=== PATIENT | female | born 1995 | race Caucasian/White ===

== ENCOUNTER → 2017-09-01 | Outpatient (CLI) | payer OTHER ==
--- NOTE | 2017-09-01 11:12 | US ---
EXAMINATION TYPE: US OB <= 14 wk fetus DATE OF EXAM: 09/01/2017 COMPARISON: NONE CLINICAL HISTORY: 22-year-old female Z36 Confirm dates. EXAM PERFORMED: Transabdominal (TA) FINDINGS: EXAM MEASUREMENTS: GESTATIONAL AGE / DATING Physician Established: Not yet established Dates by LMP: (11 weeks/1 days) EDC: 03/22/2018 Dates by First Scan: No previous this is first scan Dates by Current Scan for: (10 weeks/2 days), 6 days smaller EDC: 03/28/2018 MATERNAL ANATOMY Uterus: 10.0 x 6.7 x 7.9 cm Right Ovary: 3.2 x 2.4 x 1.8 cm Left Ovary: 3.5 x 2.2 x 1.8 cm Post CDS / Adnexa: wnl Presence of free fluid: No Presence of corpus luteal cyst: No Presence of subchorionic bleed: Yes, along the right posterior margin, measuring 1.0 x 0.8 x 0.6 cm GESTATION / SURVEY CRL: 3.3 cm (10 weeks/2 days) Yolk Sac (normal less than 6mm): 3.7 mm Heart Rate: 172 bpm, upper limits of normal Rhythm: Normal IUP: Viable IUP Date of LMP: 06/15/2017 Beta HcG (if available): Not available at time of exam Terminal Worker notes: Viable IUP with an VENKAT of 03/28/2018. Probable subchorionic bleed visualized measu ring 1.0 x 0.8 x 0.6 cm. IMPRESSION: 1. Single live intrauterine with estimated gestational age of 11 weeks 1 day by LMP. Curren t ultrasound biometry is 6 days smaller (10 weeks 2 days). 2. Small perigestational bleed. 3. Given the perigestational bleed, slightly smaller size, and heart rate at the upper limits o f normal, consider short interval follow-up. 4. Otherwise, complete survey recommended at 18-20 weeks.
== END | disposition home or self-care (01) ==
LOC: RADUSWWP 09:59
PROVIDERS: ATTEND Obstetrics & Gynecology
DX: Z36.89 Encounter for other specified antenatal screening (principal); O20.8 Other hemorrhage in early pregnancy; Z3A.10 10 weeks gestation of pregnancy
CPT/HCPCS: 76801

== ENCOUNTER 2017-10-14 14:14 | Emergency (ER) | payer OTHER ==
[2017-10-14 14:23] VITALS: RESP 18
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
[2017-10-14 16:00] VITALS: BP 123/56; PULSE 99; TEMP 98.3
== END 2017-10-14 16:00 | disposition home or self-care (01) ==
LOC: EC 14:14
DX: Z04.1 Encounter for examination and observation following transport accident (principal); O99.282 Endocrine, nutritional and metabolic diseases complicating pregnancy, second trimester; E07.9 Disorder of thyroid, unspecified; O99.332 Smoking (tobacco) complicating pregnancy, second trimester; F17.200 Nicotine dependence, unspecified, uncomplicated; Z3A.20 20 weeks gestation of pregnancy; Z79.899 Other long term (current) drug therapy; Z88.0 Allergy status to penicillin; Z88.1 Allergy status to other antibiotic agents; Z88.2 Allergy status to sulfonamides; V89.2XXA Person injured in unspecified motor-vehicle accident, traffic, initial encounter; Y92.410 Unspecified street and highway as the place of occurrence of the external cause
CPT/HCPCS: 76805; 99284

== ENCOUNTER 2018-02-28 17:06 | Inpatient (IN) | payer OTHER ==
[2018-02-28 18:31] LABS: Amorphous Sediment,Urine Rare /hpf; Appearance,Urine Cloudy (Clear); Bacteria,Urine Occasional /hpf; Bilirubin,Urine Negative (Negative); Blood,Urine Negative (Negative); Color,Urine Yellow; Glucose,Urine (UA) Negative (Negative); Hyaline Casts,Urine 3 /lpf (0-2); Ketones,Urine Negative (Negative); Leukocyte Esterase,Urine Large (Negative); Mucus,Urine Rare /hpf; Nitrite,Urine Negative (Negative); Protein,Urine 3+ (Negative); RBC,Urine 8 /hpf (0-5); Specific Gravity,Urine 1.015 (1.001-1.035); Squamous Epithelial Cell,Urine 19 /hpf (0-4); Urobilinogen,Urine <2.0 mg/dL (<2.0); WBC,Urine >182 /hpf (0-5)
[2018-02-28 18:40] LABS: Basophils % (A) 0 %; Eosinophils # (A) 0.2 k/uL (0-0.7); Eosinophils % (A) 1 %; HCT 39.2 % (34.0-46.0); HGB 13.5 gm/dL (11.4-16.0); Lymphocytes # (A) 2.9 k/uL (1.0-4.8); Lymphocytes % (A) 15 %; MCH 32.1 pg (25.0-35.0); MCHC 34.4 g/dL (31.0-37.0); MCV 93.1 fL (80.0-100.0); Mean Platelet Volume 7.2; Monocytes # (A) 0.6 k/uL (0-1.0); Monocytes % (A) 3 %; Neutrophils # (A) 14.6 k/uL (1.3-7.7); Neutrophils % (A) 78 %; Platelet Count 510 k/uL (150-450); RBC 4.21 m/uL (3.80-5.40); RDW 13.7 % (11.5-15.5); WBC 18.7 k/uL (3.8-10.6)
[2018-02-28 18:48] LABS: ALT 26 U/L (9-52); AST 18 U/L (14-36); Blood Urea Nitrogen 7 mg/dL (7-17); LDH 409 U/L (313-618); Uric Acid 4.9 mg/dL (3.7-7.4)
[2018-02-28] MEDS ORDERED: OXYTOCIN 10 UNIT/ML 1 ML VIAL IM PRN (20:37)
[2018-02-28] MEDS ORDERED: CARBOPROST TROMETHAMINE 250 MCG/ML 1 ML AMP IM PRN (20:37)
[2018-02-28] MEDS ORDERED: TERBUTALINE 1 MG/ML VIAL SQ PRN (20:37)
[2018-02-28] MEDS ORDERED: METHYLERGONOVINE 0.2 MG/ML 1 ML AMP IM PRN (20:37)
[2018-02-28] MEDS ORDERED: LIDOCAINE 1% (PF) 10 MG/ML (30 ML SDV) SQ PRN (20:37)
--- NOTE | 2018-02-28 20:43 | P.HPOB ---
History of Present Illness H&P Date: 02/28/18 Chief Complaint: Intrauterine at 37 weeks: Gestational hypertension Eusebia is a 22-year-old at 37 weeks gestation who arrives with elevated blood pressures and contractions. She relates contractions have been going on all day. Her blood pressures since being in labor and delivery have all been in the 140s 150/80-90 range. She's had no significant other elevations. However as she is past 37 weeks and she is had multiple blood pressure elevations gestational hypertension has been diagnosed and she is planned for delivery in the morning. She is alina irregularly he'll heart tones were in the 140s and a category 1 tracing is noted. It is noted that she's had no other complications or concerns during the and she is feeling well at this time. Pertinent labs did include A+ blood type Rh and it was negative, rubella nonimmune, hepatitis B surface antigen and RPR were both negative. Groupie strep was not obtained until Thursday and is therefore unknown. She does have multiple ALLERGIES to antibiotics, however due to unknown group B strep status Cleocin will need to be used for GBS prophylaxis. Her past medical history is seen him for thyroid disease she denies any other medical problems or complications. Currently she is dilated to 2 cm 80% effaced -2 station. In discussing symptomatology with the patient she denies any headache, no epigastric pain, no visual changes. Her deep tendon reflexes are +1 to +2 bilaterally in both upper and lower extremities. It is noted that her heart is regular, lungs are clear and her extremities are without pain and there is no significant peripheral edema. It is also noted that she has no epigastric pain to palpation and gravid uterus is noted. Assessment intrauterine at 37 weeks. Plan induction of labor in the morning unless something changes slight in which case we'll initiate labor tonight. We did discuss starting labor tonight she is very hungry she's not eaten throughout most of the day and would prefer to have some type of foods that she has strength to try and be put into labor in the morning. Past Medical History Past Medical History: Asthma, Thyroid Disorder History of Any Multi-Drug Resistant Organisms: None Reported Past Surgical History: Orthopedic Surgery Additional Past Surgical History / Comment(s): lt knee Smoking Status: Current every day smoker Medications and Allergies Home Medications Medication Instructions Recorded Confirmed Type Levothyroxine Sodium [Synthroid] 200 mcg PO DAILY 02/28/14 02/28/18 History Pnv No.95/Ferrous Fum/Folic AC 1 tab PO DAILY 02/28/18 02/28/18 History [ Multivitamin Tablet] Venlafaxine HCl [Effexor XR] 75 mg PO DAILY 02/28/18 02/28/18 History valACYclovir [Valtrex] 500 mg PO DAILY 02/28/18 02/28/18 History Allergies Allergy/AdvReac Type Severity Reaction Status Date / Time azithromycin [From Zithromax] Allergy Rash/Hives Verified 02/28/18 17:18 Penicillins Allergy Unknown Verified 02/28/18 17:18 Childhood Sulfa (Sulfonamide Allergy Rash/Hives Verified 02/28/18 17:18 Antibiotics) Exam Osteopathic Statement: *. No significant issues noted on an osteopathic structural exam other than those noted in the History and Physical/Consult. - Vital Signs Vital signs: Vital Signs Temp Pulse Resp BP 02/28/18 18:59 95 16 157/86 02/28/18 17:58 98.5 F 94 16 144/92 Intake and Output 02/28/18 02/28/18 02/28/18 06:59 14:59 22:59 Other: Weight 104.326 kg - OBG Physical Exam Breast: both: normal (no masses) Abdomen: bowel sounds normal, no diffuse tenderness, no bruit present, no guarding noted, no hepatomegaly, no splenomegaly, no mass Vulva: both: normal Vagina: normal moisture, no discharge Cervix: no lesion, no discharge Uterus: normal size, normal contour Adnexa: both: normal Anus/Rectum: normal perianal skin, no rectal mass, no hemorrhoids, heme negative Results Result Diagrams: 02/28/18 18:25 02/28/18 18:25 Abnormal Lab Results - Last 24 Hours (Table) 02/28/18 02/28/18 02/28/18 Range/Units 18:07 18:25 18:25 WBC 18.7 H (3.8-10.6) k/uL Plt Count 510 H (150-450) k/uL Neutrophils # 14.6 H (1.3-7.7) k/uL Creatinine 0.50 L (0.52-1.04) mg/dL Urine Appearance Cloudy H (Clear) Urine Protein 3+ H (Negative) Ur Leukocyte Esterase Large H (Negative) Urine RBC 8 H (0-5) /hpf Urine WBC >182 H (0-5) /hpf Ur Squamous Epith Cells 19 H (0-4) /hpf Amorphous Sediment Rare H (None) /hpf Urine Bacteria Occasional H (None) /hpf Hyaline Casts 3 H (0-2) /lpf Urine Mucus Rare H (None) /hpf
[2018-02-28 21:00] VITALS: BMI 37.1
[2018-03-01] MEDS: LACTATED RINGERS 1,000 ML IV SCH ×5 (06:08→21:14)
[2018-03-01] MEDS: OXYTOCIN 20 UNITS/1000 ML NS 1,000 ML IV SCH (06:09)
[2018-03-01] MEDS: CLINDAMYCIN 900 MG in DEXTROSE 5% IN WATER 50 ML IVPB SCH ×6 (06:16→21:16)
[2018-03-01 06:23] LABS: Basophils # (A) 0.1 k/uL (0-0.2); Basophils % (A) 0 %; Eosinophils # (A) 0.2 k/uL (0-0.7); Eosinophils % (A) 1 %; HCT 41.8 % (34.0-46.0); HGB 13.9 gm/dL (11.4-16.0); Lymphocytes # (A) 3.7 k/uL (1.0-4.8); Lymphocytes % (A) 20 %; MCH 31.2 pg (25.0-35.0); MCHC 33.3 g/dL (31.0-37.0); MCV 93.5 fL (80.0-100.0); Mean Platelet Volume 7.1; Monocytes # (A) 0.7 k/uL (0-1.0); Monocytes % (A) 4 %; Neutrophils # (A) 13.6 k/uL (1.3-7.7); Neutrophils % (A) 73 %; Platelet Count 554 k/uL (150-450); RBC 4.46 m/uL (3.80-5.40); RDW 13.6 % (11.5-15.5); WBC 18.8 k/uL (3.8-10.6)
[2018-03-01] MEDS: LEVOTHYROXINE 100 MCG TAB PO SCH (07:49)
[2018-03-01] MEDS: valACYclovir 500 MG TAB PO SCH (07:49)
[2018-03-01] MEDS: VENLAFAXINE HCL ER 75 MG CAP PO SCH (07:49)
[2018-03-01] MEDS: BUTORPHANOL 1 MG/ML 1 ML VIAL IV PRN ×4 (12:47→23:06)
[2018-03-01] MEDS ORDERED: BUPIVACAINE (PF) 0.25% 30 ML VIAL ONE (19:05)
[2018-03-01] MEDS ORDERED: SODIUM CHLORIDE 0.9% 100 ML BAG ONE (19:05)
[2018-03-01] MEDS ORDERED: fentaNYL (PF) 50 MCG/ML 5 ML AMP ONE (19:05)
[2018-03-02] MEDS: OXYTOCIN 20 UNITS/1000 ML NS 1,000 ML IV SCH (00:31)
[2018-03-02] MEDS ORDERED: diphenhydrAMINE 25 MG CAP PO PRN (00:36)
[2018-03-02] MEDS ORDERED: diphenhydrAMINE 50 MG/ML 1 ML VIAL IVP PRN ×2 (00:36)
[2018-03-02] MEDS ORDERED: WITCH HAZEL 1 EACH MED..PAD TOPICAL PRN (00:36)
[2018-03-02] MEDS ORDERED: ACETAMINOPHEN TAB 325 MG TAB PO PRN (00:36)
[2018-03-02] MEDS ORDERED: IBUPROFEN 600 MG TAB PO PRN (00:36)
[2018-03-02] MEDS ORDERED: BENZOCAINE/MENTHOL SPRAY 1 GM/SPRAY AEROSOL TOPICAL PRN (00:36)
[2018-03-02] MEDS ORDERED: HYDROCORTISONE 2.5% RECTAL CREAM 30 GM TUBE RECTAL PRN (00:36)
[2018-03-02] MEDS ORDERED: ZOLPIDEM 5 MG TAB PO PRN (00:36)
[2018-03-02] MEDS ORDERED: SIMETHICONE 80 MG CHEWABLE PO PRN (00:36)
[2018-03-02] MEDS ORDERED: diphenhydrAMINE 50 MG CAP PO PRN (00:36)
[2018-03-02] MEDS ORDERED: LANOLIN CREAM 5 GM TUBE TOPICAL PRN (00:36)
--- NOTE | 2018-03-02 00:41 | P.PROBDLV ---
Vaginal Delivery Note - . Vaginal Delivery Note: 22 year old presents at 37 weeks for induction of labor for gestational hypertension. Her cervix is 2 cm dilated, 80% effaced, -1 station. She is not alina. heart tones 130-135 with moderate variability and reactive. Pitocin was started, amniotomy performed at 7:21 AM and thin meconium fluid seen. She progressed slowly throughout the day. When she was 6 cm dilated she did get an epidural. The epidural did not work very well and she did get another dose of Stadol. She was completely dilated at 2331, pushed, and delivered a viable female over intact perineum under epidural anesthesia at 2348. Head delivered OA, nuchal cord 1 easily reduced, anterior shoulder which was the right shoulder delivered gentle downward guidance followed by posterior shoulder and rest of body. Nose and mouth bulb suctioned, cord clamped and cut, infant placed on mother's abdomen. Apgars 8, 9, weight 6 lbs. 2 oz. Placenta delivered manually with three-vessel cord at 2359. Vagina, cervix, and perineum were inspected. No lacerations noted. Estimated blood loss 250 mL.
[2018-03-02] MEDS ORDERED: OXYTOCIN 20 UNITS/1000 ML NS 1,000 ML IV SCH (00:45)
[2018-03-02] MEDS: SENNOSIDES-DOCUSATE SODIUM 1 EACH TAB PO SCH ×2 (10:13→23:14)
[2018-03-02] MEDS: LEVOTHYROXINE 100 MCG TAB PO SCH (10:13)
[2018-03-02] MEDS: valACYclovir 500 MG TAB PO SCH (10:13)
[2018-03-02] MEDS: VENLAFAXINE HCL ER 75 MG CAP PO SCH (10:14)
[2018-03-02 12:46] VITALS: RESP 18
[2018-03-03 00:53] VITALS: BP 141/86; PULSE 94; TEMP 98.4
[2018-03-03 07:48] LABS: Basophils # (A) 0.1 k/uL (0-0.2); Basophils % (A) 1 %; Eosinophils # (A) 0.3 k/uL (0-0.7); Eosinophils % (A) 1 %; HCT 34.1 % (34.0-46.0); HGB 11.5 gm/dL (11.4-16.0); Lymphocytes # (A) 4.7 k/uL (1.0-4.8); Lymphocytes % (A) 25 %; MCH 31.7 pg (25.0-35.0); MCHC 33.7 g/dL (31.0-37.0); Mean Platelet Volume 7.1; Monocytes # (A) 0.7 k/uL (0-1.0); Monocytes % (A) 4 %; Neutrophils # (A) 12.9 k/uL (1.3-7.7); Neutrophils % (A) 67 %; Platelet Count 500 k/uL (150-450); RBC 3.63 m/uL (3.80-5.40); RDW 13.3 % (11.5-15.5); WBC 19.2 k/uL (3.8-10.6)
[2018-03-03] MEDS ORDERED: valACYclovir 500 MG TAB ONE (09:00)
[2018-03-03] MEDS ORDERED: LEVOTHYROXINE 100 MCG TAB ONE (09:00)
[2018-03-03] MEDS ORDERED: VENLAFAXINE HCL ER 75 MG CAP PO ONE (09:00)
[2018-03-03] MEDS: valACYclovir 500 MG TAB PO SCH (15:28)
[2018-03-03] MEDS: VENLAFAXINE HCL ER 75 MG CAP PO SCH (15:28)
[2018-03-03] MEDS: SENNOSIDES-DOCUSATE SODIUM 1 EACH TAB PO SCH (15:28)
[2018-03-03] MEDS: LEVOTHYROXINE 100 MCG TAB PO SCH (15:28)
== END 2018-03-03 12:35 | disposition home or self-care (01) | DRG 775 ==
LOC: FBPOP 17:06 → 4FBP 19:20
PROVIDERS: ADMIT Obstetrics & Gynecology; ATTEND Obstetrics & Gynecology
PROC: 10907ZC Drainage of Amniotic Fluid, Therapeutic from Products of Conception, Via Natural or Artificial Opening (ICD-10-PCS; principal; 2018-02-28)
PROC: 10E0XZZ Delivery of Products of Conception, External Approach (ICD-10-PCS; 2018-02-28)
PROC: 3E033VJ Introduction of Other Hormone into Peripheral Vein, Percutaneous Approach (ICD-10-PCS; 2018-02-28)
PROC: 00HU33Z Insertion of Infusion Device into Spinal Canal, Percutaneous Approach (ICD-10-PCS; 2018-02-28)
PROC: 3E0R3NZ Introduction of Analgesics, Hypnotics, Sedatives into Spinal Canal, Percutaneous Approach (ICD-10-PCS; 2018-02-28)
DX: O13.4 Gestational [pregnancy-induced] hypertension without significant proteinuria, complicating childbirth (principal); O69.81X0 Labor and delivery complicated by cord around neck, without compression, not applicable or unspecified; O99.334 Smoking (tobacco) complicating childbirth; F17.200 Nicotine dependence, unspecified, uncomplicated; O99.284 Endocrine, nutritional and metabolic diseases complicating childbirth; E07.9 Disorder of thyroid, unspecified; Z37.0 Single live birth; Z3A.37 37 weeks gestation of pregnancy; Z79.890 Hormone replacement therapy; Z79.899 Other long term (current) drug therapy; Z88.0 Allergy status to penicillin; Z88.2 Allergy status to sulfonamides
CPT/HCPCS: 59025; 81001; 82565; 83615; 84450; 84460; 84520; 84550; 85025; 99215

== ENCOUNTER 2018-03-07 09:00 | Emergency (ER) | payer OTHER ==
[2018-03-07] MEDS ORDERED: SODIUM CHLORIDE 0.9% 1,000 ML IV ONE (09:47)
--- NOTE | 2018-03-07 09:48 | ED ---
Female Urogenital HPI - General Chief complaint: Vaginal Bleeding Stated complaint: Vaginal Bleeding Time Seen by Provider: 03/07/18 09:22 Source: patient, RN notes reviewed, old records reviewed Mode of arrival: ambulatory Limitations: no limitations - History of Present Illness Initial comments: Patient is 22-year-old female , with chief complaint of increased vaginal bleeding 6 days after giving to her baby girl. Patient reports that she had a normal vaginal delivery, with some, Patient with retained placenta the time. Apparently patient's placenta came out for pieces. She reports that the bleeding light and opt for the past few days but increased over her yesterday and today. She reports that she is not passing heavy clots. She denies any tearing during the vaginal delivery. She reports that she sometimes feels lightheaded and dizzy. She was here visiting her baby on the pediatric floor when she told the nursing staff they thought that she could should come down for further evaluation. JOINT SUPERVISOR was Dr. Suresh. - Related Data Home Medications Medication Instructions Recorded Confirmed Levothyroxine Sodium [Synthroid] 200 mcg PO DAILY 02/28/14 02/28/18 Pnv No.95/Ferrous Fum/Folic AC 1 tab PO DAILY 02/28/18 02/28/18 [ Multivitamin Tablet] Venlafaxine HCl [Effexor XR] 75 mg PO DAILY 02/28/18 02/28/18 valACYclovir [Valtrex] 500 mg PO DAILY 02/28/18 02/28/18 Allergies Allergy/AdvReac Type Severity Reaction Status Date / Time azithromycin [From Zithromax] Allergy Rash/Hives Verified 03/07/18 09:10 Penicillins Allergy Unknown Verified 03/07/18 09:10 Childhood Sulfa (Sulfonamide Allergy Rash/Hives Verified 03/07/18 09:10 Antibiotics) Review of Systems ROS Statement: Those systems with pertinent positive or pertinent negative responses have been documented in the HPI. ROS Other: All systems not noted in ROS Statement are negative. Past Medical History Past Medical History: Asthma, Thyroid Disorder History of Any Multi-Drug Resistant Organisms: None Reported Past Surgical History: Orthopedic Surgery Additional Past Surgical History / Comment(s): lt knee Past Psychological History: No Psychological Hx Reported Smoking Status: Former smoker Past Alcohol Use History: None Reported Past Drug Use History: None Reported - Past Family History Mother Family Medical History: Diabetes Mellitus, Hypertension General Exam - General Exam Comments Initial Comments: The 22-year-old female. Alert and oriented. No acute distress. Limitations: no limitations General appearance: alert, in no apparent distress Head exam: Present: atraumatic, normocephalic, normal inspection Eye exam: Present: normal appearance, PERRL, EOMI. Absent: scleral icterus, conjunctival injection, periorbital swelling ENT exam: Present: normal exam, mucous membranes moist Neck exam: Present: normal inspection. Absent: tenderness, meningismus, lymphadenopathy Respiratory exam: Present: normal lung sounds bilaterally. Absent: respiratory distress, wheezes, rales, rhonchi, stridor Cardiovascular Exam: Present: regular rate, normal rhythm, normal heart sounds. Absent: systolic murmur, diastolic murmur, rubs, gallop, clicks GI/Abdominal exam: Present: soft, normal bowel sounds. Absent: distended, tenderness, guarding, rebound, rigid Back exam: Present: normal inspection Neurological exam: Present: alert, oriented X3, CN II-XII intact Psychiatric exam: Present: normal affect, normal mood Skin exam: Present: warm, dry, intact, normal color. Absent: rash Course Vital Signs 03/07/18 03/07/18 09:09 12:53 Temperature 98.4 F 98.6 F Pulse Rate 80 90 Respiratory 20 99 H Rate Blood Pressure 126/84 138/85 O2 Sat by Pulse 98 98 Oximetry - Reevaluation(s) Reevaluation #1: 03/07/18 11:25 Patient was reevaluated sinus quite hysterical and crying. When I went to discuss doing a pelvic exam she is refusing. I discussed the importance of this in regards to this as a home and she is bleeding into check her cervix. She did go to an ultrasound prior to this. She must wait for ultrasound report until I can examine her. Medical Decision Making - Medical Decision Making Female presents with vaginal bleed 6 days postdelivery. She was concerned feeling lightheaded and dizzy. At this time he vital signs stable. Blood cell count is mildly elevated. This was similar to her last blood work discharged from OB floor. Patient has been quite irate while in the emergency department, Patient was yelling multiple curse words during evaluation. Patient's nurse from the pediatric floor came down and also was talking to the Patient. Patient refused pelvic exam by me. Ultrasound did show increased vascular recommended FLANGING MACHINE OPERATOR consult. We did consult Dr. Arguelles recommend seeing Dr. Suresh in the office tomorrow, she does have stable hemoglobin stable vital signs. Patient will be discharged at this time and return to the pediatric floor to see her child. - Lab Data Result diagrams: 03/07/18 09:46 03/07/18 09:46 Lab Results 03/07/18 03/07/18 03/07/18 Range/Units 09:46 09:46 09:46 WBC 18.6 H (3.8-10.6) k/uL RBC 4.19 (3.80-5.40) m/uL Hgb 12.8 (11.4-16.0) gm/dL Hct 38.6 (34.0-46.0) % MCV 92.2 (80.0-100.0) fL MCH 30.4 (25.0-35.0) pg MCHC 33.0 (31.0-37.0) g/dL RDW 12.9 (11.5-15.5) % Plt Count 664 H (150-450) k/uL Neutrophils % 75 % Lymphocytes % 17 % Monocytes % 4 % Eosinophils % 3 % Basophils % 0 % Neutrophils # 14.0 H (1.3-7.7) k/uL Lymphocytes # 3.1 (1.0-4.8) k/uL Monocytes # 0.8 (0-1.0) k/uL Eosinophils # 0.5 (0-0.7) k/uL Basophils # 0.0 (0-0.2) k/uL PT 9.6 (9.0-12.0) sec INR 1.0 (<1.2) APTT 23.7 (22.0-30.0) sec Sodium 141 (137-145) mmol/L Potassium 4.6 (3.5-5.1) mmol/L Chloride 103 (98-107) mmol/L Carbon Dioxide 22 (22-30) mmol/L Anion Gap 16 mmol/L BUN 11 (7-17) mg/dL Creatinine 0.82 (0.52-1.04) mg/dL Est GFR (CKD-EPI)AfAm >90 (>60 ml/min/1.73 sqM) Est GFR (CKD-EPI)NonAf >90 (>60 ml/min/1.73 sqM) Glucose 87 (74-99) mg/dL Calcium 10.3 H (8.4-10.2) mg/dL Total Bilirubin 0.2 (0.2-1.3) mg/dL AST 24 (14-36) U/L ALT 27 (9-52) U/L Alkaline Phosphatase 79 (38-126) U/L Total Protein 6.9 (6.3-8.2) g/dL Albumin 3.8 (3.5-5.0) g/dL Urine Color Urine Appearance (Clear) Urine pH (5.0-8.0) Ur Specific [place] (1.001-1.035) Urine Protein (Negative) Urine Glucose (UA) (Negative) Urine Ketones (Negative) Urine Blood (Negative) Urine Nitrite (Negative) Urine Bilirubin (Negative) Urine Urobilinogen (<2.0) mg/dL Ur Leukocyte Esterase (Negative) Urine RBC (0-5) /hpf Urine WBC (0-5) /hpf Ur Squamous Epith Cells (0-4) /hpf Urine Bacteria (None) /hpf Urine Mucus (None) /hpf Blood Type Blood Type Confirm Blood Type Recheck Antibody Screen Spec Expiration Date 03/07/18 03/07/18 03/07/18 Range/Units 09:46 09:46 10:46 WBC (3.8-10.6) k/uL RBC (3.80-5.40) m/uL Hgb (11.4-16.0) gm/dL Hct (34.0-46.0) % MCV (80.0-100.0) fL MCH (25.0-35.0) pg MCHC (31.0-37.0) g/dL RDW (11.5-15.5) % Plt Count (150-450) k/uL Neutrophils % % Lymphocytes % % Monocytes % % Eosinophils % % Basophils % % Neutrophils # (1.3-7.7) k/uL Lymphocytes # (1.0-4.8) k/uL Monocytes # (0-1.0) k/uL Eosinophils # (0-0.7) k/uL Basophils # (0-0.2) k/uL PT (9.0-12.0) sec INR (<1.2) APTT (22.0-30.0) sec Sodium (137-145) mmol/L Potassium (3.5-5.1) mmol/L Chloride (98-107) mmol/L Carbon Dioxide (22-30) mmol/L Anion Gap mmol/L BUN (7-17) mg/dL Creatinine (0.52-1.04) mg/dL Est GFR (CKD-EPI)AfAm (>60 ml/min/1.73 sqM) Est GFR (CKD-EPI)NonAf (>60 ml/min/1.73 sqM) Glucose (74-99) mg/dL Calcium (8.4-10.2) mg/dL Total Bilirubin (0.2-1.3) mg/dL AST (14-36) U/L ALT (9-52) U/L Alkaline Phosphatase (38-126) U/L Total Protein (6.3-8.2) g/dL Albumin (3.5-5.0) g/dL Urine Color Yellow Urine Appearance Clear (Clear) Urine pH 6.0 (5.0-8.0) Ur Specific [place] 1.007 (1.001-1.035) Urine Protein Trace H (Negative) Urine Glucose (UA) Negative (Negative) Urine Ketones Negative (Negative) Urine Blood Moderate H (Negative) Urine Nitrite Negative (Negative) Urine Bilirubin Negative (Negative) Urine Urobilinogen <2.0 (<2.0) mg/dL Ur Leukocyte Esterase Moderate H (Negative) Urine RBC 26 H (0-5) /hpf Urine WBC 18 H (0-5) /hpf Ur Squamous Epith Cells 1 (0-4) /hpf Urine Bacteria Occasional H (None) /hpf Urine Mucus Rare H (None) /hpf Blood Type A Positive Blood Type Confirm A Positive Blood Type Recheck CABO Indicated Antibody Screen NEGATIVE Spec Expiration Date 03/10/2018 - 0158 - Radiology Data Radiology results: report reviewed Abnormal endometrial start thickening was internal vascularity recommended JOINT SUPERVISOR consult. Further endometrial biopsy as indicated. Disposition Clinical Impression: Vaginal bleeding, History of vaginal delivery, Mood change Disposition: HOME SELF-CARE Condition: Good Instructions: Bleeding (ED) Additional Instructions: Patient follow-up with her FLANGING MACHINE OPERATOR tomorrow. Rest, remain hydrated. There is severe bleeding or any other concerning complications please return to emergency department for further evaluation. Is patient prescribed a controlled substance at d/c from ED?: No When asked, does pt state using other controlled substances?: No If prescribed controlled substance>3 days was MAPS reviewed?: No If opioid is for acute pain is fill amount 7 days or less?: No If Rx opioid, was Start Talking consent form obtained?: No Referrals: Clement King MD [Primary Care Provider] - 1-2 days Norma Suresh DO [Doctor of Osteopathic Medicine] - 1-2 days Time of Disposition: 12:03
[2018-03-07 10:06] LABS: Basophils % (A) 0 %; Eosinophils # (A) 0.5 k/uL (0-0.7); Eosinophils % (A) 3 %; HCT 38.6 % (34.0-46.0); HGB 12.8 gm/dL (11.4-16.0); Lymphocytes # (A) 3.1 k/uL (1.0-4.8); Lymphocytes % (A) 17 %; MCH 30.4 pg (25.0-35.0); MCV 92.2 fL (80.0-100.0); Mean Platelet Volume 7.2; Monocytes # (A) 0.8 k/uL (0-1.0); Monocytes % (A) 4 %; Neutrophils % (A) 75 %; Platelet Count 664 k/uL (150-450); RBC 4.19 m/uL (3.80-5.40); RDW 12.9 % (11.5-15.5); WBC 18.6 k/uL (3.8-10.6)
[2018-03-07 10:14] LABS: Appearance,Urine Clear (Clear); Bacteria,Urine Occasional /hpf; Bilirubin,Urine Negative (Negative); Blood,Urine Moderate (Negative); Color,Urine Yellow; Glucose,Urine (UA) Negative (Negative); Ketones,Urine Negative (Negative); Leukocyte Esterase,Urine Moderate (Negative); Mucus,Urine Rare /hpf; Nitrite,Urine Negative (Negative); Protein,Urine Trace (Negative); RBC,Urine 26 /hpf (0-5); Specific Gravity,Urine 1.007 (1.001-1.035); Squamous Epithelial Cell,Urine 1 /hpf (0-4); Urobilinogen,Urine <2.0 mg/dL (<2.0); WBC,Urine 18 /hpf (0-5)
[2018-03-07 10:15] LABS: Partial Thromboplastin Time 23.7 sec (22.0-30.0); Prothrombin Time 9.6 sec (9.0-12.0)
[2018-03-07 10:18] LABS: ALT 27 U/L (9-52); AST 24 U/L (14-36); Albumin 3.8 g/dL (3.5-5.0); Alkaline Phosphatase 79 U/L (38-126); Anion Gap 16 mmol/L; Blood Urea Nitrogen 11 mg/dL (7-17); Calcium 10.3 mg/dL (8.4-10.2); Carbon Dioxide 22 mmol/L (22-30); Chloride 103 mmol/L (98-107); Glucose 87 mg/dL (74-99); Potassium 4.6 mmol/L (3.5-5.1); Sodium 141 mmol/L (137-145); Total Bilirubin 0.2 mg/dL (0.2-1.3); Total Protein 6.9 g/dL (6.3-8.2)
--- NOTE | 2018-03-07 11:27 | US ---
EXAMINATION TYPE: US pelvic complete DATE OF EXAM: 03/07/2018 COMPARISON: NONE CLINICAL HISTORY: Pain. 6 days, heavy bleeding, during delivery patient states her placent a came out in 4 pieces. TECHNIQUE: TA due to enlarged UT. Date of LMP: unknown, EXAM MEASUREMENTS: Uterus: 16.4 x 9.4 x 9.3 cm Endometrial Stripe: 4.7 cm Right Ovary: 3.9 x 3.6 x 3.2 cm Left Ovary: 3.7 x 2.8 x 2.7 cm 1. Uterus: Anteverted enlarged, otherwise wnl 2. Endometrium: thickened with vascular components seen 3. Right Ovary: wnl 4. Left Ovary: wnl 5. Bilateral Adnexa: wnl 6. Posterior cul-de-sac: wnl IMPRESSION: Abnormal endometrial stripe thickening with some internal vascularity, recommend FIGURINE MAKER cons ult, consider endometrial biopsy as indicated.
[2018-03-07 12:55] VITALS: BP 138/85; PULSE 90; RESP 99; TEMP 98.6
== END 2018-03-07 12:53 | disposition home or self-care (01) ==
LOC: EC 09:00
DX: O72.1 Other immediate postpartum hemorrhage (principal); O90.6 Postpartum mood disturbance; O99.285 Endocrine, nutritional and metabolic diseases complicating the puerperium; E07.9 Disorder of thyroid, unspecified; Z87.891 Personal history of nicotine dependence; Z53.29 Procedure and treatment not carried out because of patient's decision for other reasons; Z79.899 Other long term (current) drug therapy; Z88.1 Allergy status to other antibiotic agents; Z88.0 Allergy status to penicillin; Z88.2 Allergy status to sulfonamides
CPT/HCPCS: 36415; 76856; 80053; 81001; 85025; 85610; 85730; 86850; 86900; 86901; 96360; 96361; 99284

== ENCOUNTER → 2019-11-01 | Outpatient (CLI) | payer OTHER ==
--- NOTE | 2019-11-01 10:18 | US ---
EXAMINATION TYPE: Transabdominal DATE OF EXAM: 11/01/2019 9:11 AM COMPARISON: NONE CLINICAL HISTORY: Z36 Confirm dates. Confirm Dates, pt has no complaints at this time EXAM PERFORMED: Transabdominal (TA) EXAM MEASUREMENTS: GESTATIONAL AGE / DATING Physician Established: (10 weeks/1 days) EDC: 05/28/2020 Dates by LMP: Unknown Dates by First Scan: No prior Dates by Current Scan for: (10 weeks/1 days) EDC: 05/28/2020 MATERNAL ANATOMY Uterus: 10.8 x 7.5 x 7.6 cm Right Ovary: 4.4 x 2.1 x 2.4 cm Left Ovary: 4.1 x 3.2 x 2.2 cm Post CDS / Adnexa: wnl Presence of free fluid: No Presence of corpus luteal cyst: Left Ovary= 2.9 x 1.8 x 2.0 cm Presence of subchorionic bleed: No GESTATION / SURVEY CRL: 3.2 cm (10 weeks/1 days) MSD: wnl Yolk Sac (normal less than 6mm): 3mm Heart Rate: 176 bpm Rhythm: Normal IUP: Live IUP IMPRESSION: Single live intrauterine with a sonographic age of 10 weeks and 1 day and estim ated date of delivery of 05/28/2020, concordant with physician established dates.
== END | disposition home or self-care (01) ==
LOC: RADUSWWP 08:58
PROVIDERS: ATTEND Obstetrics & Gynecology
DX: Z36.9 Encounter for antenatal screening, unspecified (principal)
CPT/HCPCS: 76801

== ENCOUNTER 2020-04-06 15:13 | Outpatient (CLI) | payer OTHER ==
[2020-04-06 15:59] LABS: Basophils % (A) 0 %; Eosinophils # (A) 0.2 k/uL (0-0.7); Eosinophils % (A) 1 %; HCT 38.3 % (34.0-46.0); HGB 12.2 gm/dL (11.4-16.0); Lymphocytes # (A) 2.6 k/uL (1.0-4.8); Lymphocytes % (A) 20 %; MCH 30.3 pg (25.0-35.0); MCHC 31.9 g/dL (31.0-37.0); MCV 95.2 fL (80.0-100.0); Mean Platelet Volume 7.7; Monocytes # (A) 0.6 k/uL (0-1.0); Monocytes % (A) 4 %; Neutrophils # (A) 9.3 k/uL (1.3-7.7); Neutrophils % (A) 72 %; Platelet Count 459 k/uL (150-450); RBC 4.02 m/uL (3.80-5.40); RDW 12.5 % (11.5-15.5); WBC 12.9 k/uL (3.8-10.6)
[2020-04-06 16:07] LABS: ALT 14 U/L (4-34); AST 20 U/L (14-36); African American GFR (CKD) >90 (>60 ml/min/1.73 sqM); Blood Urea Nitrogen 8 mg/dL (7-17); LDH 321 U/L (313-618); Magnesium 1.6 mg/dL (1.6-2.3); Non-African American GFR(CKD) >90 (>60 ml/min/1.73 sqM); Uric Acid 5.5 mg/dL (3.7-7.4)
[2020-04-06 16:12] LABS: Amorphous Sediment,Urine Few /hpf; Appearance,Urine Cloudy (Clear); Bacteria,Urine Occasional /hpf; Bilirubin,Urine Negative (Negative); Blood,Urine Negative (Negative); Calcium Oxalate Crystals,Urine Few /hpf; Color,Urine Yellow; Glucose,Urine (UA) Negative (Negative); Ketones,Urine Negative (Negative); Leukocyte Esterase,Urine Moderate (Negative); Mucus,Urine Rare /hpf; Nitrite,Urine Negative (Negative); PH, Urine 6.5 (5.0-8.0); Protein,Urine Trace (Negative); RBC,Urine 2 /hpf (0-5); Specific Gravity,Urine 1.023 (1.001-1.035); Squamous Epithelial Cell,Urine 21 /hpf (0-4); Urobilinogen,Urine <2.0 mg/dL (<2.0); WBC,Urine 5 /hpf (0-5)
[2020-04-06 16:17] LABS: Protein/Creatinine Ratio,Urine 0.078
--- NOTE | 2020-04-23 07:52 | P.MSEPDOC ---
Presenting Problems - Arrival Data Date of Arrival on Unit: 04/06/20 Time of Arrival on Unit: 15:13 Mode of Transport: Ambulatory - Complaint OB-Reason for Admission/Chief Complaint: PIH Comment: pt sent over from the office by Dr. Baker for PIH workup with written orders Medical History - Information : 2 Para: 1 Term: 0 : 1 Abortions: Spontaneous or Elective: 0 Number of Living Children: 1 - Gestational Age Gestational Age by VENKAT (wks/days): 32 Weeks and 3 Days - History Complications: Prior Review of Systems - Review of Systems Constitutional: No problems Breast: No problems ENT: No problems Cardiovascular: No problems Respiratory: No problems Gastrointestinal: No problems Genitourinary: No problems Musculoskeletal: No problems Neurological: No problems Skin: No problems Physician Notification (Pre) - Physician Notified Physician Notified Date: 04/06/20 Physician Notified Time: 16:23 - Notification Comment Comment: pt sent chuck with 24 hour urine collection Disposition - Disposition OB Disposition: Discharge to home, Written follow up instructions reviewed Discharge Date: 04/06/20 Discharge Time: 16:45 I agree with the RN Medical Screening Exam: Yes Risk & Benefit of care provided described in d/c instruction: Yes Diagnosis: GESTATIONAL HTN W/O SIGNIFICANT PROTEINURIA, THIRD TRIMESTER
== END 2020-04-06 16:45 | disposition home or self-care (01) ==
LOC: FBPOP 15:13
PROVIDERS: ATTEND Obstetrics & Gynecology
DX: O13.3 Gestational [pregnancy-induced] hypertension without significant proteinuria, third trimester (principal); Z3A.32 32 weeks gestation of pregnancy
CPT/HCPCS: 59025; 82570; 84156; 82565; 83615; 83735; 84450; 84460; 84520; 84550; 85025; 81001; G0463; 99215

== ENCOUNTER 2020-04-07 16:00 | Outpatient (CLI) | payer OTHER ==
[2020-04-07 16:28] LABS: Total Volume 24 Hour,Urine 1800 mls (800-1800)
[2020-04-07 16:41] LABS: Total Protein 24 Hour,Urine 252 mg/24hr (42.0-225.0)
[2020-04-07 17:12] VITALS: BP 123/68; PULSE 98; RESP 16; TEMP 96.4
--- NOTE | 2020-04-18 16:39 | P.MSEPDOC ---
Presenting Problems - Arrival Data Date of Arrival on Unit: 04/07/20 Time of Arrival on Unit: 16:15 Mode of Transport: Ambulatory - Complaint OB-Reason for Admission/Chief Complaint: PIH Medical History - Information : 2 Para: 1 Term: 0 : 1 Abortions: Spontaneous or Elective: 0 Number of Living Children: 1 - Gestational Age Gestational Age by VENKAT (wks/days): 32 Weeks and 4 Days Review of Systems - Review of Systems Constitutional: No problems Breast: No problems ENT: No problems Cardiovascular: No problems Respiratory: No problems Gastrointestinal: No problems Genitourinary: No problems Musculoskeletal: No problems Neurological: No problems Skin: No problems Vital Signs - Temperature Temperature: 96.4 F Temperature Source: Tympanic - Pulse Right Brachial Pulse Rate: 98 Pulse Assessment Method: Automatic Cuff - Respirations Respiratory Rate: 16 Oxygen Delivery Method: Room Air - Blood Pressure Right Arm Blood Pressure: 123/68 Blood Pressure Mean: 86 Blood Pressure Source: Automatic Cuff Medical Screen Scoring (Pre) - Cervical Exam Dilation: Exam Deferred Effacement: Exam Deferred Membranes: Intact - Uterine Contractions Frequency: N/A Duration: N/A Intensity: N/A - Maternal Vital Signs Maternal Temperature: N/A Maternal Blood Pressure: N/A Signs of Preeclampsia: N/A Maternal Respirations: N/A - Maternal Trauma Maternal Trauma: N/A - Assessment - Baby A Baseline FHR: 145 Heart Rate - NICHD Category: Category I (Normal) = 0 - Total Score - Baby A Total Score - Baby A: 0 - Total Score - Baby B Total Score - Baby B: 0 - Total Score - Baby C Total Score - Baby C: 0 - Level of Risk - Baby A Level of Risk - Baby A: Low (0-5) - Level of Risk - Baby B Level of Risk - Baby B: Low (0-5) - Level of Risk - Baby C Level of Risk - Baby C: Low (0-5) Physician Notification (Pre) - Physician Notified Physician Notified Date: 04/07/20 Physician Notified Time: 17:00 New Order Received: Yes - Notification Comment Comment: d/c home Disposition - Disposition OB Disposition: Discharge to home Discharge Date: 04/07/20 Discharge Time: 17:11 I agree with the RN Medical Screening Exam: Yes Risk & Benefit of care provided described in d/c instruction: Yes Diagnosis: GESTATIONAL HTN W/O SIGNIFICANT PROTEINURIA, THIRD TRIMESTER
== END 2020-04-07 17:13 | disposition home or self-care (01) ==
LOC: FBPOP 16:00
PROVIDERS: ATTEND Obstetrics & Gynecology
DX: O13.3 Gestational [pregnancy-induced] hypertension without significant proteinuria, third trimester (principal); Z3A.32 32 weeks gestation of pregnancy
CPT/HCPCS: 59025; 81050; 84156; G0463; 99213

== ENCOUNTER 2020-05-20 19:15 | Inpatient (IN) | payer OTHER ==
[2020-05-20 20:14] LABS: Basophils % (A) 0 %; Eosinophils # (A) 0.1 k/uL (0-0.7); Eosinophils % (A) 1 %; HCT 40.5 % (34.0-46.0); HGB 13.2 gm/dL (11.4-16.0); Lymphocytes # (A) 3.3 k/uL (1.0-4.8); Lymphocytes % (A) 18 %; MCH 30.9 pg (25.0-35.0); MCHC 32.5 g/dL (31.0-37.0); Mean Platelet Volume 8.1; Monocytes # (A) 0.7 k/uL (0-1.0); Monocytes % (A) 4 %; Neutrophils # (A) 13.9 k/uL (1.3-7.7); Neutrophils % (A) 76 %; Platelet Count 550 k/uL (150-450); RBC 4.26 m/uL (3.80-5.40); WBC 18.2 k/uL (3.8-10.6)
[2020-05-20 20:15] LABS: ALT 13 U/L (4-34); AST 17 U/L (14-36); African American GFR (CKD) >90 (>60 ml/min/1.73 sqM); Blood Urea Nitrogen 10 mg/dL (7-17); LDH 334 U/L (313-618); Non-African American GFR(CKD) >90 (>60 ml/min/1.73 sqM); Uric Acid 6.4 mg/dL (3.7-7.4)
[2020-05-20 20:18] LABS: Appearance,Urine Cloudy (Clear); Bacteria,Urine Occasional /hpf; Bilirubin,Urine Negative (Negative); Blood,Urine Negative (Negative); Calcium Oxalate Crystals,Urine Many /hpf; Color,Urine Yellow; Glucose,Urine (UA) Negative (Negative); Ketones,Urine Trace (Negative); Leukocyte Esterase,Urine Trace (Negative); Mucus,Urine Occasional /hpf; Nitrite,Urine Negative (Negative); PH, Urine 6.5 (5.0-8.0); Protein,Urine 1+ (Negative); Specific Gravity,Urine 1.027 (1.001-1.035); Squamous Epithelial Cell,Urine 8 /hpf (0-4); Urobilinogen,Urine <2.0 mg/dL (<2.0); WBC,Urine 4 /hpf (0-5)
[2020-05-20 20:31] LABS: Protein/Creatinine Ratio,Urine 0.055
--- NOTE | 2020-05-20 20:52 | P.HPOB ---
History of Present Illness H&P Date: 05/20/20 Chief Complaint: Intrauterine 38 weeks: Gestational hypertension Eusebia is a 25-year-old at 38 weeks 4 days gestation who arrives complaining of intermittent contractions and on initial presentation her blood pressure she had 2 blood pressures that were elevated 149/90 range she denied headache no epigastric pain no visual changes no other signs or symptoms for severe preeclampsia pre-clamped labs were ordered but were all normal she did have 1+ protein and after discussion with her with a history of preeclampsia in her last at 35 weeks we have decided that she'll stay and be induced in the morning for gestational hypertension. Risks of advancement preeclampsia are reviewed with the patient she understands that is a clear risk with her h istory. She has no other questions or concerns her cervix is 1/2 cm dilated 70% effaced -2 station all of questions are answered for both she and her partner. Her past medical history is otherwise significant for thyroid disease past surgical history arthroscopic knee surgery ALLERGIES none social history assume for 5 serous. Tobacco abuse and daily marijuana use. We did review that marijuana was not safe in she had very irate relating that she can do it she wanted and that she didn't believe there were any risk with smoking marijuana for her unborn child or her children at home. I did note a recent study that shoulders and increased risk of autism in children whose mother smo ked marijuana during which she flatly said was not true. I tried simply making her aware that smoking marijuana was not safe for children and certainly not safe for babies but she has made it clear that she believes otherwise. On physical exam vital signs are now stable with blood pressures in the one teens over 60s heart is regular, lungs are clear, extremities without pain. Abdomen soft gravid uterus is noted category 1 tracing is noted no contractions are noted on the monitor. Assessment intrauterine at 3 8 weeks with gestational hypertension and history of preeclampsia requiring early delivery last . It should be noted that I do not have records from her last so is I am not certain what the circumstances were at the time of her last delivery. Plan induction of labor in a.m. Past Medical History Past Medical History: Asthma, Thyroid Disorder History of Any Multi-Drug Resistant Organisms: None Reported Past Surgical History: Orthopedic Surgery Additional Past Surgical History / Comment(s): lt knee Smoking Status: Never smoker - Past Family History Mother Family Medical History: Diabetes Mellitus, Hypertension Medications and Allergies Home Medications Medication Instructions Recorded Confirmed Type Levothyroxine Sodium [Synthroid] 200 mcg PO DAILY 02/28/14 04/06/20 History Pnv No.95/Ferrous Fum/Folic AC 1 tab PO DAILY 02/28/18 04/06/20 History [ Multivitamin Tablet] valACYclovir [Valtrex] 500 mg PO DAILY 02/28/18 04/06/20 History Allergies Allergy/AdvReac Type Severity Reaction Status Date / Time azithromycin [From Zithromax] Allergy Rash/Hives Verified 05/20/20 19:17 Sulfa (Sulfonamide Allergy Rash/Hives Verified 05/20/20 19:17 Antibiotics) Exam Osteopathic Statement: *. No significant issues noted on an osteopathic structural exam other than those noted in the History and Physical/Consult. Vital Signs Temp Pulse Resp BP Pulse Ox 05/20/20 20:23 97.8 F 123 H 16 149/94 97 Intake and Output 05/20/20 05/20/20 05/20/20 06:59 14:59 22:59 Other: Weight 104.326 kg Results Result Diagrams: 05/20/20 19:40 05/20/20 19:40 Abnormal Lab Results - Last 24 Hours (Table) 05/20/20 05/20/20 Range/Units 19:24 19:40 WBC 18.2 H (3.8-10.6) k/uL Plt Count 550 H (150-450) k/uL Neutrophils # 13.9 H (1.3-7.7) k/uL Urine Appearance Cloudy H (Clear) Urine Protein 1+ H (Negative) Urine Ketones Trace H (Negative) Ur Leukocyte Esterase Trace H (Negative) Ur Squamous Epith Cells 8 H (0-4) /hpf Calcium Oxalate Crystal Many H (None) /hpf Urine Bacteria Occasional H (None) /hpf Urine Mucus Occasional H (None) /hpf
[2020-05-20 22:05] LABS: Creatinine,Urine Random 215.4 mg/dL
[2020-05-20] MEDS ORDERED: CARBOPROST TROMETHAMINE 250 MCG/ML 1 ML AMP IM PRN (22:11)
[2020-05-20] MEDS ORDERED: LIDOCAINE 0.5% (PF) 5 MG/ML (50 ML SDV) SQ PRN (22:11)
[2020-05-20] MEDS ORDERED: METHYLERGONOVINE 0.2 MG/ML 1 ML AMP IM PRN (22:11)
[2020-05-20] MEDS ORDERED: TERBUTALINE 1 MG/ML VIAL SQ PRN (22:11)
[2020-05-20] MEDS ORDERED: OXYTOCIN 10 UNIT/ML 1 ML VIAL IM PRN (22:11)
[2020-05-21] MEDS ORDERED: AMPICILLIN 2,000 MG in SODIUM CHLORIDE 0.9% 100 ML IVPB STA (00:21)
[2020-05-21] MEDS: LACTATED RINGERS 1,000 ML IV SCH ×2 (05:40→11:13)
[2020-05-21] MEDS ORDERED: AMPICILLIN 2,000 MG in SODIUM CHLORIDE 0.9% 100 ML IVPB ONE ×4 (06:00)
[2020-05-21] MEDS ORDERED: AMPICILLIN 2,000 MG in EMPTY SYRINGE 1 SYR IV ONE (06:00)
[2020-05-21] MEDS ORDERED: OXYTOCIN 30 UNITS/500 ML NS 30 UNIT in SALINE 1 500ML.BAG IV SCH (06:00)
[2020-05-21] MEDS ORDERED: BUTORPHANOL 1 MG/ML 1 ML VIAL IV PRN (09:10)
[2020-05-21] MEDS: AMPICILLIN 1,000 MG in SODIUM CHLORIDE 0.9% 50 ML IVPB SCH ×2 (09:59→13:58)
[2020-05-21] MEDS ORDERED: ROPIVACAINE 100 MG, fentaNYL (PF) 200 MCG in SODIUM CHLORIDE 0.9% 76 ML EPIDURAL ONE (11:13)
[2020-05-21] MEDS ORDERED: diphenhydrAMINE 50 MG CAP PO PRN (17:59)
[2020-05-21] MEDS ORDERED: BENZOCAINE/MENTHOL SPRAY 1 GM/SPRAY AEROSOL TOPICAL PRN (17:59)
[2020-05-21] MEDS ORDERED: ZOLPIDEM 5 MG TAB PO PRN (17:59)
[2020-05-21] MEDS ORDERED: HYDROCORTISONE 2.5% RECTAL CREAM 30 GM TUBE RECTAL PRN (17:59)
[2020-05-21] MEDS ORDERED: LANOLIN CREAM 5 GM TUBE TOPICAL PRN (17:59)
[2020-05-21] MEDS ORDERED: ACETAMINOPHEN TAB 325 MG TAB PO PRN (17:59)
[2020-05-21] MEDS ORDERED: diphenhydrAMINE 25 MG CAP PO PRN (17:59)
[2020-05-21] MEDS ORDERED: SIMETHICONE 80 MG CHEWABLE PO PRN (17:59)
[2020-05-21] MEDS ORDERED: diphenhydrAMINE 50 MG/ML 1 ML VIAL IVP PRN ×2 (17:59)
[2020-05-21] MEDS ORDERED: OXYTOCIN 20 UNITS/1000 ML NS 1,000 ML IV SCH (18:00)
--- NOTE | 2020-05-21 18:01 | P.PROBDLV ---
Vaginal Delivery Note - . Vaginal Delivery Note: The patient progressed to complete dilation after oxytocin induction of labor and artificial rupture membranes with clear fluid noted. She did receive epidural anesthesia while in labor. Once reaching complete, she began pushing. Infant's head came to a crown. With one further push, the 's head delivered across the perineum followed by the anterior shoulder. Nose and mouth were bulb suctioned. With one remaining push, the remainder the was easily delivered and was placed on mother's abdomen. Cord was clamped and cut and was taken to warmer for evaluation. A viable male infant was noted with scores of 9 at 1 minute and 9 at 5 minutes and weight of 7 lbs. 2 oz. Uterus contracted well after oxytocin was given and uterine massage was carried out. Inspection of the perineum revealed no perineal lacerations. Placenta delivered shortly thereafter, intact, with a three-vessel cord. Uterus did contract fairly well after oxytocin was given and uterine massage was carried out. Estimated blood loss is approximately 100 mL's. Both mother and infant are in stable condition.
[2020-05-21] MEDS: SENNOSIDES-DOCUSATE SODIUM 1 EACH TAB PO SCH (20:02)
[2020-05-22] MEDS: IBUPROFEN 600 MG TAB PO PRN ×2 (01:47→09:38)
--- NOTE | 2020-05-22 07:03 | P.DS ---
Providers Date of admission: 05/20/20 22:15 Expected date of discharge: 05/22/20 Attending physician: Norma Suresh Primary care physician: Stated None - Discharge Diagnosis(es) (1) Normal vaginal delivery Current Visit: No Status: Acute Hospital Course: Pt was admitted and induces for gestational hypertension. She underwent induction of labor and normal vaginal delivery. PP course is uncomplicated. She denies N/V, F/C, TYSON, vision changes or RUQ pain. She will be discharged home PPD #1 in stable condition to follow up with me in 2 weeks for a BP check. Plan - Discharge Summary New Discharge Prescriptions: New Ibuprofen [Motrin] 600 mg PO Q6HR PRN #30 tab PRN Reason: Mild Pain Or Fever >= 100.5 No Action Levothyroxine Sodium [Synthroid] 200 mcg PO DAILY valACYclovir [Valtrex] 500 mg PO DAILY Pnv No.95/Ferrous Fum/Folic AC [ Multivitamin Tablet] 1 tab PO DAILY Discharge Medication List Levothyroxine Sodium [Synthroid] 200 mcg PO DAILY 02/28/14 [History] Pnv No.95/Ferrous Fum/Folic AC [ Multivitamin Tablet] 1 tab PO DAILY 02/28/18 [History] valACYclovir [Valtrex] 500 mg PO DAILY 02/28/18 [History] Ibuprofen [Motrin] 600 mg PO Q6HR PRN #30 tab 05/22/20 [Rx] Follow up Appointment(s)/Referral(s): Norma Suresh DO [Doctor of Osteopathic Medicine] - 2 Weeks Discharge Disposition: HOME SELF-CARE
[2020-05-22 08:26] LABS: Basophils # (A) 0.1 k/uL (0-0.2); Basophils % (A) 0 %; Eosinophils # (A) 0.3 k/uL (0-0.7); Eosinophils % (A) 2 %; HGB 11.9 gm/dL (11.4-16.0); Lymphocytes # (A) 3.8 k/uL (1.0-4.8); Lymphocytes % (A) 22 %; MCH 30.4 pg (25.0-35.0); MCHC 31.3 g/dL (31.0-37.0); Monocytes # (A) 0.8 k/uL (0-1.0); Monocytes % (A) 5 %; Neutrophils # (A) 11.6 k/uL (1.3-7.7); Neutrophils % (A) 68 %; Platelet Count 479 k/uL (150-450); RBC 3.92 m/uL (3.80-5.40)
[2020-05-22] MEDS: SENNOSIDES-DOCUSATE SODIUM 1 EACH TAB PO SCH (10:15)
[2020-05-22 17:40] VITALS: BP 131/85; PULSE 84; RESP 18; TEMP 98.5
== END 2020-05-22 19:50 | disposition home or self-care (01) | DRG 807 ==
LOC: FBPOP 19:15 → 4FBP 20:58 → OBSVTOIN 22:15
PROVIDERS: ADMIT Obstetrics & Gynecology; ATTEND Obstetrics & Gynecology
PROC: 3E033VJ Introduction of Other Hormone into Peripheral Vein, Percutaneous Approach (ICD-10-PCS; 2020-05-20)
PROC: 10E0XZZ Delivery of Products of Conception, External Approach (ICD-10-PCS; principal; 2020-05-21)
PROC: 10907ZC Drainage of Amniotic Fluid, Therapeutic from Products of Conception, Via Natural or Artificial Opening (ICD-10-PCS; 2020-05-21)
PROC: 3E0R3BZ Introduction of Anesthetic Agent into Spinal Canal, Percutaneous Approach (ICD-10-PCS; 2020-05-21)
DX: O13.4 Gestational [pregnancy-induced] hypertension without significant proteinuria, complicating childbirth (principal); Z37.0 Single live birth; O99.324 Drug use complicating childbirth; Z3A.38 38 weeks gestation of pregnancy; O99.284 Endocrine, nutritional and metabolic diseases complicating childbirth; E07.9 Disorder of thyroid, unspecified; F12.90 Cannabis use, unspecified, uncomplicated; O99.334 Smoking (tobacco) complicating childbirth; F17.200 Nicotine dependence, unspecified, uncomplicated; J45.909 Unspecified asthma, uncomplicated; O99.52 Diseases of the respiratory system complicating childbirth; Z79.890 Hormone replacement therapy; Z79.899 Other long term (current) drug therapy; Z88.1 Allergy status to other antibiotic agents; Z88.2 Allergy status to sulfonamides; Z83.3 Family history of diabetes mellitus; Z82.49 Family history of ischemic heart disease and other diseases of the circulatory system
CPT/HCPCS: 59025; 81001; 82565; 82570; 83615; 84156; 84450; 84460; 84520; 84550; 85025; 86850; 86900; 86901; 99213